=== PATIENT | male | born 1995 | race Caucasian/White ===

== ENCOUNTER → 2018-02-02 | Outpatient (REF) | payer OTHER | LOC: M LAB REF 13:33 | DX: D48.5 Neoplasm of uncertain behavior of skin (principal) ==

== ENCOUNTER 2024-12-31 22:10 | Emergency (ER) | payer BC, OTHER ==
[~2024-12-31] VITALS: Ht 177.8 cm; Wt 82.2 kg
[~2024-12-31 22:10] MED LIST: PERC5TAB8
[2024-12-31 22:18] VITALS: TEMP 98.2
[2024-12-31] MEDS ORDERED: ACET32TAB PO (22:32)
[2025-01-01 01:36] VITALS: O2SAT 97
[2025-01-01 01:45] VITALS: BP 131/77
== END 2025-01-01 02:06 | disposition home or self-care (01) ==
LOC: M ED 22:10
DX: S09.90XA Unspecified injury of head, initial encounter (principal); R55 Syncope and collapse; W50.0XXA Accidental hit or strike by another person, initial encounter; Y92.89 Other specified places as the place of occurrence of the external cause; Y93.71 Activity, boxing; Y99.9 Unspecified external cause status